=== PATIENT | male | born 1950 | race Hispanic/Latino ===

== ENCOUNTER → 2021-08-09 | Outpatient (CLI) | payer OTHER ==
[2021-08-09 14:40] LABS: CREATININE 1.3 mg/dL (0.5-1.5)
== END | disposition home or self-care (01) ==
LOC: LAB 11:47
PROVIDERS: ATTEND Internal Medicine Gastroenterology
DX: R63.4 Abnormal weight loss (principal)
CPT/HCPCS: 36415; 82565; 84520